=== PATIENT | male | born 1960 | race Two or more races ===

== ENCOUNTER 2019-11-10 10:42 | Day surgery (SDC) | payer OTHER ==
[2019-11-05 11:56] VITALS: BMI 27.8
[2019-11-10 11:05] VITALS: TEMP 97.8
[2019-11-10] MEDS ORDERED: PROPOFOL 20 ML ONE ×2 (11:50)
[2019-11-10 13:23] VITALS: BP 149/84; PULSE 76
== END 2019-11-10 13:20 | disposition home or self-care (01) ==
LOC: FASU-ENDO 10:42
PROVIDERS: ATTEND Internal Medicine Gastroenterology
PROC: 0DJD8ZZ Inspection of Lower Intestinal Tract, Via Natural or Artificial Opening Endoscopic (ICD-10-PCS; principal; 2019-11-10 12:25)
DX: Z12.11 Encounter for screening for malignant neoplasm of colon (principal); K57.30 Diverticulosis of large intestine without perforation or abscess without bleeding; K64.1 Second degree hemorrhoids